=== PATIENT | female | born 1980 ===

== ENCOUNTER 2018-06-19 16:00 | Inpatient (IN) | payer OTHER ==
[~2018-06-19] VITALS: Ht 157.5 cm; Wt 3.2 kg
[2018-06-19] MEDS ORDERED: FOLIC ACID1 MG PO (20:10)
[2018-06-19] MEDS ORDERED: PRENATAL TABLE1 EAC1 PO (20:10)
== END 2018-06-25 09:12 | disposition home or self-care (01) | DRG 787 ==
LOC: LDR 16:00 → OB/GYN 16:00 → O/R 06-20 17:19 → OB/GYN 06-20 17:43
PROVIDERS: ADMIT Obstetrics & Gynecology
PROC: 4A1HXCZ Monitoring of Products of Conception, Cardiac Rate, External Approach (ICD-10-PCS; 2018-06-20)
PROC: 10D00Z1 Extraction of Products of Conception, Low, Open Approach (ICD-10-PCS; principal; 2018-06-20 14:00)
DX: O82 Encounter for cesarean delivery without indication (principal); O98.12 Syphilis complicating childbirth; O34.211 Maternal care for low transverse scar from previous cesarean delivery; O75.82 Onset (spontaneous) of labor after 37 completed weeks of gestation but before 39 completed weeks gestation, with delivery by (planned) cesarean section; Z3A.39 39 weeks gestation of pregnancy; Z37.0 Single live birth